=== PATIENT | male | born 1970 | race Caucasian/White ===

== ENCOUNTER 2018-08-13 08:48 | Day surgery (SDC) | payer BC ==
[~2018-08-13] VITALS: Ht 170.2 cm; Wt 104.1 kg
[2018-08-13] VITALS (8 sets, daily range): BP systolic 109–118; BP diastolic 62–86; PULSE 56–88; TEMP 97.5
[2018-08-13] MEDS ORDERED: COPAXONE 20M20 MG/M1 SQ (09:21)
[2018-08-13] MEDS ORDERED: ERGOCALCIFER50000 IU PO (09:22)
[2018-08-13 09:27] LABS: COLLECTION METHOD CLEAN CATCH
[2018-08-13 09:32] LABS: BASO % 0.5 % (0.0-2.0); EOS # 0.1 (0.0-0.7); EOS % 0.8 % (0-4.0); GRAN # 4.4 (1.4-6.5); GRAN % 68.3 % (42.2-75.2); HEMOGLOBIN 14.5 g/dl (13.5-18.0); LYMPH # 1.4 (1.2-3.4); LYMPH % 21.9 % (20.0-51.0); MEAN CELL VOLUME 88 fl (80.0-100.0); MEAN CORPUSCULAR HEMOGLOBIN 30 pg (27.0-31.0); MEAN CORPUSCULAR HGB CONC 34 g/dl (33.0-37.0); MEAN PLATELET VOLUME 10.6 fl (7.4-10.4); MONO # 0.5 (0.1-0.6); MONO % 7.9 % (1.7-9.3); PLATELET COUNT 221 K/mm3 (130-400); REDCELL DISTRIBUTION WIDTH-CV 12.6 % (11.5-14.5)
[2018-08-13 09:35] LABS: PH 6 (5-8); SQUAMOUS EPITHELIAL None Seen /hpf; URINE APPEARANCE Clear; URINE BACTERIA None Seen /hpf; URINE BILIRUBIN Negative (NEGATIVE); URINE BLOOD Negative (NEGATIVE); URINE COLOR Yellow; URINE GLUCOSE Negative (NEGATIVE); URINE KETONE Negative (NEGATIVE); URINE LEUKOCYTE ESTERASE Negative (NEGATIVE); URINE NITRATE Negative (NEGATIVE); URINE PROTEIN(semi-quant) Negative (NEGATIVE); URINE RBC 0-2 /hpf; URINE UROBILINOGEN Negative (NEGATIVE)
[2018-08-13 09:59] LABS: ALBUMIN 4.7 gm/dL (3.5-5.0); BILIRUBIN,TOTAL 0.4 mg/dL (0.0-1.0); C-REACTIVE PROTEIN 4.6 mg/dL (0.0-0.9); CALCIUM 9.7 mg/dL (8.4-10.2); CREATININE, serum 0.92 mg/dL (0.66-1.25); POTASSIUM 4.2 mmol/L (3.4-5.0); TOTAL PROTEIN 7.9 gm/dL (6.4-8.2)
[2018-08-13] MEDS ORDERED: MOTRIN 600600 MG/TAB PO (13:08)
[2018-08-13] MEDS ORDERED: COLACE 100100 MG/CAP PO (13:09)
[2018-08-13] MEDS ORDERED: NORCO 325 MG-51 TAB PO (13:09)
--- NOTE | 2018-08-13 16:20 | NUR ---
Patient recieved from [facility] in [place]. Patient settled into his room. Drowsy, his supportive at bedside. Vss. Patient has been weaned off O2. He tolerated a meal he has been ambulating halls.
--- NOTE | 2018-08-13 17:18 | NUR ---
Patient ready for discharge. His taking him home. Patient voided. Int DC. Vitals stable. Tolerated food without nausea. Lap site x3 edges well approximated, open to air. Gas pain improved, denies the need for pain medication. Patient ambulated out with all belongings
== END 2018-08-13 17:19 | disposition home or self-care (01) ==
LOC: COL.ER 08:48 → SDCO 11:57 → SURG 13:52 → SDCO 17:19
PROVIDERS: Emergency Medicine
DX: K35.80 Unspecified acute appendicitis (principal); K21.9 Gastro-esophageal reflux disease without esophagitis; G35 Multiple sclerosis; Z87.891 Personal history of nicotine dependence; Z88.0 Allergy status to penicillin
CPT/HCPCS: OP; J0744; J1170; J1885; J2405; J2550; J2704; J3010; J7030; J7120; Q9967